=== PATIENT | female | born 1970 | race Caucasian/White ===

== ENCOUNTER → 2016-12-03 | Outpatient (CLI) | payer BC ==
[~2016-12-03] MED LIST: BCPILLS PO; CLX20 PO; IBUP-1050 PO
--- NOTE | 2016-12-03 16:40 | MAMMOGRAPHY REPORT ---
BILATERAL DIGITAL SCREENING MAMMOGRAM TOMOSYNTHESIS WITH CAD: 12/03/2016 CLINICAL HISTORY: Routine screening. Patient has no complaints. TECHNIQUE: Breast tomosynthesis in addition to standard 2D mammography was performed. Current study was also evaluated with a Computer Aided Detection (CAD) system. Bilateral CC and MLO 2-D and luke synthesis images were obtained. Tomosynthesis images were obtained of the implant displaced views. COMPARISON: Comparison is made to exams dated: 12/02/2015 mammogram, 09/12/2014 mammogram, 09/11/2013 mammogram, 09/28/2014 mammogram, 09/09/2012 mammogram, and 08/19/2011 mammogram - [facility]. BREAST COMPOSITION: The tissue of both breasts is heterogeneously dense, which may obscure small ma sses. FINDINGS: No suspicious masses, calcifications, or areas of architectural distortion are noted in e ither breast. There has been no significant interval change compared to prior exams. Bilateral sili cone implants are stable in appearance. A biopsy marker clip is again noted in the right lateral br east. IMPRESSION: ACR BI-RADS CATEGORY 2: BENIGN There is no mammographic evidence of malignancy. A 1 year screening mammogram is recommended. The p atient will receive written notification of the results. Approximately 10% of breast cancers are not detected with mammography. A negative mammographic repor t should not delay biopsy if a clinically suggestive mass is present. Nicole Guillermo M.D. /:12/03/2016 15:44:54 Chicken Hanger: Geni BELLA(Effie)(M), [facility] letter sent: Normal 1/2 BI-RADS Code: ACR BI-RADS Category 2: Benign
== END | disposition home or self-care (01) ==
LOC: C.MAMM 15:00
PROVIDERS: ATTEND Family Medicine
DX: Z12.31 Encounter for screening mammogram for malignant neoplasm of breast (principal)

== ENCOUNTER → 2017-06-11 | Outpatient (CLI) | payer BC ==
[2017-06-11 18:22] LABS: URINE APPEARANCE TURBID (CLEAR); URINE BILIRUBIN NEG (NEG); URINE COLOR DK YELLOW; URINE EPITHELIAL CELL AUTO >30 /lpf (0-5); URINE NITRITE NEG (NEG); URINE PH 5.5 (4.5-7.5); UROBILINOGEN NEG (NEG); ZZUR CULT IF INDIC CLEAN CATCH YES
[2017-06-11 18:23] LABS: MANUAL MICROSCOPIC REQUIRED? NO; REVIEW REQ? YES
== END | disposition home or self-care (01) ==
LOC: C.LABSPEC 17:31
PROVIDERS: ATTEND Obstetrics & Gynecology
DX: R30.0 Dysuria (principal)

== ENCOUNTER → 2017-06-11 | Outpatient (CLI) | payer BC | END | disposition home or self-care (01) | LOC: C.PAPS 16:25 | PROVIDERS: ATTEND Obstetrics & Gynecology | DX: Z01.419 Encounter for gynecological examination (general) (routine) without abnormal findings (principal) ==

== ENCOUNTER → 2017-07-20 | Outpatient (CLI) | payer BC | END | disposition home or self-care (01) | LOC: C.PATHSPEC 16:49 | PROVIDERS: ATTEND Nurse Practitioner Family | DX: R31.0 Gross hematuria (principal) ==

== ENCOUNTER → 2017-07-29 | Outpatient (CLI) | payer BC ==
[~2017-07-29] MED LIST changes: +OPTIRAY 320 IV PRN
--- NOTE | 2017-07-29 15:17 | DIAGNOSTIC IMAGING REPORT ---
CT OF THE ABDOMEN AND PELVIS WITH AND WITHOUT CONTRAST HEMATURIA PROTOCOL CLINICAL HISTORY: Gross hematuria. Right upper back pain. Abdominal pain. COMPARISON STUDY: CT of the abdomen and pelvis May 18, 2009 . TECHNIQUE: Unenhanced and split bolus phase imaging of the abdomen and pelvis was performed. Injection 119 cc Optiray 320 IV was uneventful. A dose lowering technique was utilized adhering to the principles of ALARA. CT DOSE: 1464.56 mGycm FINDINGS: No renal, ureteral or bladder calculi are present. There are no solid renal lesions. No upper tract filling defects are identified. Bladder is suboptimally assessed given underdistention but no bladder mass is identified. There is no perinephric infiltration. Visualized portions of lower chest partially visualize bilateral breast implants. The liver, spleen, adrenal glands and pancreas are normal. Caliber and wall thickness of small and large bowel are normal. A right lower quadrant subcutaneous anterior abdominal wall scar is noted. No suspicious osseous lesion is present. There is no lymphadenopathy or ascites. Major vasculature of the abdomen and pelvis is patent. There is no peripancreatic or pericholecystic infiltration. No biliary or pancreatic ductal dilatation is present. IMPRESSION: 1. No CT findings to explain hematuria. No urinary calculi or hydronephrosis. No upper tract urothelial lesions. Suboptimal evaluation of the bladder given underdistention but no bladder lesion identified. 2. No acute process within the abdomen or pelvis. Electronically signed by: Bennie Palacios M.D. 07/29/2017 3:16 PM Dictated Date/Time: 07/29/2017 3:07 PM
== END | disposition home or self-care (01) ==
LOC: C.CTS 14:41
PROVIDERS: ATTEND Nurse Practitioner Family
DX: R31.0 Gross hematuria (principal)

== ENCOUNTER → 2017-12-07 | Outpatient (CLI) | payer BC, OTHER ==
[~2017-12-07] MED LIST changes: -OPTIRAY 320 IV PRN
--- NOTE | 2017-12-08 15:29 | MAMMOGRAPHY REPORT ---
BILATERAL DIGITAL SCREENING MAMMOGRAM WITH CAD: 12/07/2017 CLINICAL HISTORY: Routine screening. Patient has no complaints. TECHNIQUE: Bilateral CC and MLO views of the breasts with and without implant displacement views were obtained. Current study was also evaluated with a Computer Aided Detection (CAD) system. COMPARISON: Comparison is made to exams dated: 12/03/2016 mammogram, 12/02/2015 mammogram, 10/03/2014 ult rasound biopsy, 10/03/2014 mammogram, 09/28/2014 ultrasound, and 09/28/2014 mammogram - [facility]. BREAST COMPOSITION: The tissue of both breasts is heterogeneously dense, which may obscure small mas ses. FINDINGS: Bilateral subpectoral silicone implants are stable comparing to prior exams. There is a s table biopsy marker clip in the right upper outer quadrant. There is a small cluster of microcalcifications in the superior posterior right breast, seen on both the implant displaced and non-implant displaced MLO views, for which additional spot magnification vi ews are recommended. As these calcifications may project laterally, an additional spot magnification view in the exaggerated lateral CC projection should be obtained. No other suspicious mass, architectural distortion or cluster of microcalcifications is seen. IMPRESSION: ACR BI-RADS CATEGORY 0: INCOMPLETE EVALUATION: NEED ADDITIONAL IMAGING EVALUATION The small cluster of microcalcifications in the superior, posterior right breast need additional eval uation. The patient will be called to schedule an appointment. Approximately 10% of breast cancers are not detected with mammography. A negative mammographic report should not delay biopsy if a clinically suggestive mass is present. Indy Rodriguez M.D. ay/:12/07/2017 15:35:51 Tannery Worker: Lea BELLA(Effie)(Itzel), [facility] letter sent: Addl Imaging 0 BI-RADS Code: ACR BI-RADS Category 0: Incomplete Evaluation: Need Additional Imaging Evaluation
== END | disposition home or self-care (01) ==
LOC: C.MAMM 15:07
PROVIDERS: ATTEND Family Medicine
DX: Z12.31 Encounter for screening mammogram for malignant neoplasm of breast (principal); R92.0 Mammographic microcalcification found on diagnostic imaging of breast

== ENCOUNTER → 2017-12-15 | Outpatient (CLI) | payer OTHER ==
--- NOTE | 2017-12-16 15:54 | MAMMOGRAPHY REPORT ---
UNILATERAL RIGHT DIGITAL DIAGNOSTIC MAMMOGRAM: 12/15/2017 CLINICAL HISTORY: Callback from screening mammogram for right breast calcifications. TECHNIQUE: Spot magnification right ML and XCCL implant displaced views were obtained. COMPARISON: Comparison is made to exams dated: 12/07/2017 mammogram, 12/03/2016 mammogram, 12/02/2015 mamm ogram, 09/28/2014 ultrasound, 09/28/2014 mammogram, and 09/12/2014 mammogram - [facility]. BREAST COMPOSITION: The tissue of the right breast is heterogeneously dense, which may obscure small masses. FINDINGS: Spot magnification views of the right breast demonstrate a small 2 mm cluster of faint pun ctate calcifications in the right superior posterior breast, seen on one view only. In retrospect, t he calcifications are likely not significantly changed compared to the 09/12/2014 exam. Given the pr obable long-term stability, the calcifications are probably benign. IMPRESSION: ACR-BI-RADS CATEGORY 3: PROBABLY BENIGN Small 2 mm cluster of punctate calcifications in the right superior posterior breast are likely stabl e compared to the August 2014 exam and are probably benign. Recommend follow-up diagnostic tomosynt hesis mammograms of the right breast in 6 months to confirm stability. The patient has been verbally notified of the results. Approximately 10% of breast cancers are not detected with mammography. A negative mammographic report should not delay biopsy if a clinically suggestive mass is present. Nicole Guillermo M.D. /:12/15/2017 15:12:42 Gate Supervisor: Geni MACK)(Itzel), [facility] letter sent: Follow Up Recommended 3 BI-RADS Code: ACR-BI-RADS Category 3: Probably Benign
== END | disposition home or self-care (01) ==
LOC: C.MAMM 14:36
PROVIDERS: ATTEND Family Medicine
DX: R92.0 Mammographic microcalcification found on diagnostic imaging of breast (principal)

== ENCOUNTER 2017-12-20 20:27 | Emergency (ER) | payer OTHER ==
[~2017-12-20] VITALS: Ht 160 cm; Wt 81.6 kg
[2017-12-20 20:36] VITALS: TEMP 36.8; Ht 160 cm; Wt 81.6 kg
[2017-12-20] MEDS ORDERED: KETOROLAC TROMETHAMINE 30 MG/ML VIAL IV STA (21:46)
[2017-12-20] MEDS ORDERED: ONDANSETRON INJ 2 MG/ML 2 ML VIAL IV STA (21:46)
[2017-12-20 22:19] LABS: BASO % 0.3 %; BASO ABS # 0.03 K/uL (0-0.2); EOS % 1.5 %; EOS ABS # 0.18 K/uL (0-0.5); HEMATOCRIT 42.2 % (37-47); HEMOGLOBIN 14.2 g/dL (12.0-16.0); IG# 0.02 K/uL (0.00-0.02); LYMPH % 24.1 %; MEAN CORPUSCULAR HEMOGLOBIN 31.6 pg (25-34); MEAN CORPUSCULAR HGB CONC 33.6 g/dl (32-36); MEAN PLATELET VOLUME 9.3 fL (7.4-10.4); MONO % 5.3 %; MONO ABS # 0.62 K/uL (0.11-0.59); NEUT % 68.6 %; NEUT ABS # 7.99 K/uL (1.4-6.5); PLATELET COUNT 301 K/uL (130-400); RED CELL DISTRIBUTION WIDTH CV 13.4 % (11.5-14.5); RED CELL DISTRIBUTION WIDTH SD 46.2 fL (36.4-46.3); WHITE BLOOD COUNT 11.64 K/uL (4.8-10.8)
[2017-12-20 22:36] LABS: ALBUMIN 3.5 gm/dl (3.4-5.0); ALT/SGPT 17 U/L (12-78); BLOOD UREA NITROGEN 12 mg/dl (7-18); CALCIUM 8.8 mg/dl (8.5-10.1); CARBON DIOXIDE 27 mmol/L (21-32); CREATININE 0.72 mg/dl (0.60-1.20); GLUCOSE 69 mg/dl (70-99); LIPASE 123 U/L (73-393); POTASSIUM 3.3 mmol/L (3.5-5.1); SODIUM 137 mmol/L (136-145)
[2017-12-20 22:39] LABS: ALKALINE PHOSPHATASE 146 U/L (45-117); AST/SGOT 12 U/L (15-37); TOTAL PROTEIN 7.4 gm/dl (6.4-8.2)
[2017-12-20] MEDS ORDERED: POTASSIUM CHLORIDE 10 MEQ TABCR PO STA (22:42)
[2017-12-20] MEDS ORDERED: OPTIRAY 320 IV PRN (23:15)
[2017-12-20 23:40] VITALS: O2SAT 98
[2017-12-20] MEDS ORDERED: MoRPHine SULFATE 4 MG/ML 1 ML CARP\\VIAL IV STA (23:47)
[2017-12-21] MEDS ORDERED: DESO5TAB PO (01:44)
[2017-12-21] MEDS ORDERED: PRLSR20 PO (01:44)
[2017-12-21] MEDS ORDERED: EFF75 PO (01:44)
[2017-12-21] MEDS ORDERED: IODI1TAB PO (01:45)
[2017-12-21] MEDS ORDERED: APPL188C PO (01:45)
[2017-12-21] MEDS ORDERED: TURM1CAP4 PO (01:45)
[2017-12-21] MEDS ORDERED: OXYCODONE IR HOME PACK PO ONE (02:00)
[2017-12-21 02:06] VITALS: BP 143/82; PULSE 73; O2SAT 97
--- NOTE | 2017-12-21 02:18 | EMERGENCY ROOM VISIT NOTE ---
History First contact with patient: 21:39 Chief Complaint: ABDOMINAL PAIN Stated Complaint: SEVERE PAIN IN LOWER RIGHT ABD/BELLY BOTTON History of Present Illness The patient is a 47 year old female who presents to the Emergency Room with complaints of right lower abdominal pain over her scar for the past several days steadily getting worse it is been intermittent for quite some time. Patient states her scar area has become more painful and swollen. Pain is described as aching, ranging in severity 7 out of 10 worse with palpation and better with rest. Patient denies chest pain, dyspnea, fever, chills, night sweats, weight loss, urinary symptoms, back pain. Patient has a history of hematuria and is currently being worked up by urology for this. Review of Systems See HPI for pertinent positives & negatives. A total of 10 systems reviewed and were otherwise negative. Past Medical/Surgical History ovarian cysts, endometriosis, polycystic ovarian disease, Social History Smoking Status: Former Smoker Drug Use: none Marital Status: Housing Status: lives with family Occupation Status: employed Current/Historical Medications Scheduled Apple Cider Vinegar (Apple Cider Vinegar), 1 CAP PO DAILY Desogestrel-Ethinyl Estradiol (Pimtrea 0.15-0.02/0.01 mg (18/04)), 1 TAB PO DAILY Iodine (Kelp) (Kelp), 150 MG PO DAILY Omeprazole (Prilosec), 20 MG PO DAILY Turmeric (Curcuma Longa) (Turmeric), 500 MG PO DAILY Venlafaxine Hcl (Effexor), 3 TABS PO DAILY Physical Exam Vital Signs Date Time Temp Pulse Resp B/P (MAP) Pulse Ox O2 Delivery O2 Flow Rate FiO2 12/21/17 02:06 73 14 143/82 97 12/21/17 00:26 68 14 158/84 93 Room Air 12/20/17 23:40 98 Room Air 12/20/17 23:39 75 16 153/83 97 Room Air 12/20/17 22:25 73 18 164/97 97 Room Air 12/20/17 20:36 36.8 70 16 170/99 97 Room Air Physical Exam VITALS: Vitals are noted on the nurse's note and reviewed by myself. Vital signs hypertensive GENERAL: Pleasant female, in no acute distress, nondiaphoretic, well-developed well-nourished. SKIN: The skin was without rashes, erythema, edema, or bruising. There is no tenting of the skin. Capillary reflex less than 2 seconds. HEAD: Normocephalic atraumatic. EARS: External auditory canals clear, tympanic membranes pearly recinos without erythema or effusion bilaterally. EYES: Pupils equal round and reactive to light and accommodation. Conjunctivae without injection, sclerae without icterus. Extraocular movements intact. NOSE: Patent, turbinates without inflammation or discharge. MOUTH: Mucous membranes moist. Pharynx without erythema or exudate. Uvula midline. Airway patent. Tongue does not deviate. NECK: Supple without nuchal rigidity. No lymphadenopathy. No thyromegaly. Cervical spine is nontender. No JVD. HEART: Regular rate and rhythm without murmurs gallops or rubs. LUNGS: Clear to auscultation bilaterally without wheezes, rales or rhonchi. No dullness to percussion. No retractions or accessory muscle use. ABDOMEN: Positive bowel sounds x 4. Normal tympanic percussion. Soft, nontender, scar over the right lateral aspect tender to palpation with palpable mass without organomegaly. Couch sign negative. No guarding or rebound tenderness. No CVA tenderness MUSCULOSKELETAL: No muscle atrophy, erythema, or edema noted. NEURO: Patient was alert and oriented to person place and time. Normal sensation to light and sharp touch. No focal neurological deficits. Medical Decision & Procedures Laboratory Results 12/20/17 22:10 Red Blood Count 4.49, Mean Corpuscular Volume 94.0, Mean Corpuscular Hemoglobin 31.6, Mean Corpuscular Hemoglobin Concent 33.6, Mean Platelet Volume 9.3, Neutrophils (%) (Auto) 68.6, Lymphocytes (%) (Auto) 24.1, Monocytes (%) (Auto) 5.3, Eosinophils (%) (Auto) 1.5, Basophils (%) (Auto) 0.3, Neutrophils # (Auto) 7.99, Lymphocytes # (Auto) 2.80, Monocytes # (Auto) 0.62, Eosinophils # (Auto) 0.18, Basophils # (Auto) 0.03 12/20/17 22:10 Test 12/20/17 22:00 12/20/17 22:10 12/21/17 00:31 Urine Color YELLOW Urine Appearance CLEAR (CLEAR) Urine pH 6.0 (4.5-7.5) Urine Specific Hughson 1.009 (1.000-1.030) Urine Protein NEG (NEG) Urine Glucose (UA) NEG (NEG) Urine Ketones NEG (NEG) Urine Occult Blood TRACE (NEG) Urine Nitrite NEG (NEG) Urine Bilirubin NEG (NEG) Urine Urobilinogen NEG (NEG) Urine Leukocyte Esterase NEG (NEG) Urine WBC (Auto) 1-5 /hpf (0-5) Urine RBC (Auto) 0-4 /hpf (0-4) Urine Hyaline Casts (Auto) 0 /lpf (0-5) Urine Epithelial Cells (Auto) 20-30 /lpf (0-5) Urine Bacteria (Auto) 1+ (NEG) White Blood Count 11.64 K/uL (4.8-10.8) Red Blood Count 4.49 M/uL (4.2-5.4) Hemoglobin 14.2 g/dL (12.0-16.0) Hematocrit 42.2 % (37-47) Mean Corpuscular Volume 94.0 fL (80-100) Mean Corpuscular Hemoglobin 31.6 pg (25-34) Mean Corpuscular Hemoglobin Concent 33.6 g/dl (32-36) Platelet Count 301 K/uL (130-400) Mean Platelet Volume 9.3 fL (7.4-10.4) Neutrophils (%) (Auto) 68.6 % Lymphocytes (%) (Auto) 24.1 % Monocytes (%) (Auto) 5.3 % Eosinophils (%) (Auto) 1.5 % Basophils (%) (Auto) 0.3 % Neutrophils # (Auto) 7.99 K/uL (1.4-6.5) Lymphocytes # (Auto) 2.80 K/uL (1.2-3.4) Monocytes # (Auto) 0.62 K/uL (0.11-0.59) Eosinophils # (Auto) 0.18 K/uL (0-0.5) Basophils # (Auto) 0.03 K/uL (0-0.2) RDW Standard Deviation 46.2 fL (36.4-46.3) RDW Coefficient of Variation 13.4 % (11.5-14.5) Immature Granulocyte % (Auto) 0.2 % Immature Granulocyte # (Auto) 0.02 K/uL (0.00-0.02) Anion Gap 6.0 mmol/L (3-11) Est Creatinine Clear Calc Drug Dose 96.6 ml/min Estimated GFR () 114.8 Estimated GFR (Non- 99.0 BUN/Creatinine Ratio 16.6 (10-20) Calcium Level 8.8 mg/dl (8.5-10.1) Magnesium Level 2.0 mg/dl (1.8-2.4) Total Bilirubin 0.2 mg/dl (0.2-1) Direct Bilirubin < 0.1 mg/dl (0-0.2) Aspartate Amino Transf (AST/SGOT) 12 U/L (15-37) Alanine Aminotransferase (ALT/SGPT) 17 U/L (12-78) Alkaline Phosphatase 146 U/L (45-117) Lactate Dehydrogenase 150 U/L (84-246) Total Protein 7.4 gm/dl (6.4-8.2) Albumin 3.5 gm/dl (3.4-5.0) Lipase 123 U/L (73-393) Human Chorionic Gonadotropin, Qual NEG (NEG) Bedside Glucose 81 mg/dl (70-90) Medications Administered Medications (Trade) Dose Ordered Sig/Hai Route Start Time Stop Time Status Last Admin Dose Admin Ketorolac Tromethamine (Toradol Inj) 30 mg NOW STAT IV 12/20/17 21:46 12/20/17 21:55 DC 12/20/17 22:24 30 MG Ondansetron HCl (Zofran Inj) 4 mg NOW STAT IV 12/20/17 21:46 12/20/17 21:55 DC 12/20/17 22:24 4 MG Potassium Chloride (Klor-Con M10) 20 meq NOW STAT PO 12/20/17 22:42 12/20/17 22:43 DC 12/20/17 23:51 20 MEQ Morphine Sulfate (MoRPHine SULFATE INJ) 4 mg NOW STAT IV 12/20/17 23:47 12/20/17 23:48 DC 12/20/17 23:52 4 MG Oxycodone HCl (Roxicodone Immediate Rel 5MG Home Pack) 1 homepack UD ONCE PO 12/21/17 02:00 12/21/17 02:01 DC 12/21/17 01:56 1 HOMEPACK ED Course Prior records/ancillary studies reviewed. Triage Nursing notes reviewed. Additional history obtained from family. The patient's history was concerning for abdominal pain. Differential diagnosis: Etiologies such as prominent scar, cancer, cyst, torsion, appendicitis, diverticulitis, PUD, biliary pathology, UTI, pancreatitis, obstruction, mesenteric ischemia, aortic pathology, infections, inflammatory bowel disease, renal colic, as well as others were entertained. Physical examination findings: As above. ER treatment provided: Morphine, Toradol, IV fluids On reassessment the patient felt better. Diagnostics interpreted by me: The labs revealed hypokalemia, hypoglycemia and patient was fed. Mildly elevated alkaline phosphatase. Normal LDH. Repeat glucose is improved. Imaging studies: Pelvic ultrasound was reviewed and concerning for ovarian cyst Abdominal ultrasound limited was reviewed concerning forUS SOFT TISSUE: In the region of the section scar within the subcutaneous soft tissues there is an irregular shaped heterogeneous hypoechoic masslike lesion measuring 3.3 x 2 x 2 cm. This demonstrates minimal vascular flow. This may represent prominent scar tissue with other etiologies not excluded. Consider further evaluation with contrast-enhanced MRI if clinically indicated. Radiologist: Manuel Garvin MD CT ABDOMEN & PELVIS With Contrast: Bilateral breast augmentation. Liver, gallbladder, spleen, pancreas and adrenal glands are unremarkable. Kidneys, ureters and urinary bladder are unremarkable. Left ovarian cyst measuring up to 2.6 cm and the right ovarian cyst measuring up to 2.9 cm. Appendix is unremarkable. Bowel is unremarkable. Stable prominent soft tissue overlying the lower right rectus abdominis muscle, likely scar tissue. No acute osseous abnormality. Radiologist: Manuel Garvin MD Exam and history seem consistent with prominent scar that is tender. Patient was advised to follow-up family care for possible surgical referral. Patient did not have acute abdomen on exam. She is tolerating fluids. She is well- appearing. She has a history of ovarian cyst and this is unchanged. She is advised to follow-up with OB for this. She has a history of hematuria and she is advised to continue follow-up care with urology for this. She is advised to return to the ER immediately for severe pain, fevers, vomiting, worsening signs or symptoms or as needed.By the evaluation outlined above emergent etiologies such as appendicitis, diverticulitis, PUD, biliary pathology, UTI, pancreatitis , obstruction, mesenteric ischemia, aortic pathology, infections, inflammatory bowel disease, renal colic, as well as others were deemed relatively unlikely. The pt informed about the findings as listed above. All questions were answered and pleased with the treatment. Return instructions were outlined and the patient was discharged in stable condition. Case reviewed with my attending Referral: The patient was referred back to their primary care physician for follow-up in 2 to 3 days for a recheck of the current condition. Medical Decision As above Medication Reconcilliation Current Medication List: was personally reviewed by me Blood Pressure Screening Patient's blood pressure: Elevated blood pressure Blood pressure disposition: Elevated BP felt to be situational Impression Primary Impression: Scar of abdominal wall Additional Impression: ovarian cyst Departure Information Dispostion Home / Self-Care Condition GOOD Forms Call Back Authorization, HOME CARE DOCUMENTATION FORM, Work Instructions, Return To Work: 2 days IMPORTANT VISIT INFORMATION Patient Instructions My [facility] Additional Instructions DO NOT drive, drink alcohol, operate machinery, or perform dangerous activities today. You were given medications in the ER that can affect your ability to safely function or operate a vehicle. Ibuprofen(Motrin, Advil) may be used for fever or pain. Use 600mg every six hours as needed. Take with food. Avoid using more than 2400mg in a 24 hour period. Do not use 2400mg per day for more than three consecutive days without physician direction. Prolonged inappropriate use can lead to stomach upset or ulcers. (AND/OR) Acetaminophen(Tylenol) may be used for fever or pain. Use 1000mg every six hours as needed. Avoid using more than 3000mg in a 24 hour period. Rest and drink plenty of fluids as tolerated. Continue current medications. Avoid strenuous activities and anything that worsens your pain. Resume normal activities once your symptoms resolve. Return to the ER immediately for worsening or persistent abdominal pain, vomiting, fevers, chest pains, difficulty breathing, worsening of your condition , or as needed. Follow up with your primary physician in 2-3 days for a recheck of your current condition. Work Instructions Return To Work: 2 days Problem Qualifiers
--- NOTE | 2017-12-21 06:59 | DIAGNOSTIC IMAGING REPORT ---
ABDOMEN LIMITED (US) HISTORY: 47 years-old Female RLQ mass along couple mass of the right lower quadrant within the region of prior scar. COMPARISON: CT abdomen and pelvis of same day TECHNIQUE: Multiple real-time sonographic images of the right lower quadrant soft tissues were obtained assessing grayscale appearance and color flow. FINDINGS: Within the area of concern within the subcutaneous tissues of the abdominal right lower quadrant there is an irregular heterogeneous taller than wide hypoechoic lesion measuring 3.3 x 2.0 x 2.0 cm demonstrating areas of internal vascularity. This lesion appears to extend into the rectus abdominal musculature on the right. IMPRESSION: Irregular hypoechoic lesion measuring up to 3.3 cm within the subcutaneous tissues of the abdominal right lower quadrant appears to extend into the right rectus sheath musculature. With history of prior section, differential considerations would include endometrioma or desmoid tumor with normal scar tissue related to prior surgery thought to be less likely. The above report was generated using voice recognition software. It may contain grammatical, syntax or spelling errors. Electronically signed by: Tom Cruz M.D. 12/21/2017 6:57 AM Dictated Date/Time: 12/21/2017 6:52 AM
--- NOTE | 2017-12-21 07:42 | DIAGNOSTIC IMAGING REPORT ---
CT SCAN OF THE ABDOMEN AND PELVIS WITH IV CONTRAST CLINICAL HISTORY: Right lower quadrant abdominal pain. COMPARISON STUDY: Abdominal CT dated 07/29/2017. TECHNIQUE: Following the IV administration of 93 cc of Optiray 320, CT scan of the abdomen and pelvis is performed from the lung bases to the proximal femora. Images are reviewed in the axial, sagittal, and coronal planes. IV contrast was administered without complication. A dose lowering technique was utilized adhering to the principles of ALARA. CT DOSE: 384.93 mGy.cm FINDINGS: Lung bases: The heart is normal in size and without pericardial effusion. Air trapping is present at both lung bases. No airspace consolidation or pleural effusion is identified. Bilateral breast implants are noted. Liver: The contrast-enhanced liver is normal in size, contour, and attenuation. There is no intrahepatic biliary ductal dilatation. The hepatic veins and portal veins are patent. Gallbladder: Unremarkable. Spleen: Normal in size and attenuation. Pancreas: Unremarkable. Adrenal glands: Unremarkable. Kidneys: The contrast enhanced kidneys are normal in size and without hydronephrosis. The kidneys enhance symmetrically. Abdominal vasculature: The abdominal aorta is normal in course and caliber noting mild atherosclerotic calcification. Bowel: The small bowel and colon are normal in course and caliber. The appendix is well-visualized and normal. Peritoneum: There is no intraperitoneal free air or abdominal ascites. There is a small fat-containing umbilical hernia. There is abnormality identified involving the right rectus abdominis muscle and the ventral pelvis seen on axial image #322. Irregular and slightly hyperdense soft tissue extends into the subcutaneous fat, and this measures 6.0 x 1.7 x 3.6 cm. Lymphadenopathy: None. Pelvic viscera: The bladder is decompressed and grossly unremarkable. The uterus is normal as visualized. Bilateral ovarian follicles are noted. Skeletal structures: No lytic or blastic lesions are seen. IMPRESSION: 1. There are no acute infectious or inflammatory findings in the abdomen or pelvis. 2. Again seen is prominence of hyperdense soft tissue present within the right rectus abdominis muscle and extending the subcutaneous fat. This was also seen on 07/29/2017. This may be related to a previous surgical site, and could represent hypertrophic scar, an endometrioma within the abdominal wall, or less likely a desmoid. Clinical correlation will be essential. Electronically signed by: Ash Britt M.D. 12/21/2017 7:40 AM Dictated Date/Time: 12/21/2017 7:28 AM
--- NOTE | 2017-12-21 07:55 | DIAGNOSTIC IMAGING REPORT ---
PELVIC ULTRASOUND, TRANSABDOMINAL AND TRANSVAGINAL HISTORY: RLQ mass along COMPARISON: Abdominal ultrasound 12/20/2017. FINDINGS: Uterus: 8.2 x 3.6 x 3.8 cm. A 2.4 x 2.2 x 1.2 cm hypoechoic area within the uterine fundus with posterior shadowing. This may represent a fibroid. Endometrial stripe: Asymmetric thickening of the endometrium within the right side the fundus measuring up to 1.1 cm. There are multiple echogenic foci surrounding the endometrium within the fundus. Right ovary: Normal in size and demonstrates normal color flow. A 2.5 cm cyst. Left ovary: Normal in size and demonstrates normal color flow. A 2.7 cm cyst. Miscellaneous:No pelvic free fluid. IMPRESSION: 1. Bilateral ovarian simple cysts. 2. There is asymmetric thickening of the endometrium within the right side of the fundus measuring up to 1.1 cm in thickness. If this patient is postmenopausal then gynecologic consultation is recommended. 3. Probable 2.4 cm fundal fibroid. 4. The patient's anterior abdominal wall abnormality was not visualized on this study. Electronically signed by: Paul Temple M.D. 12/21/2017 7:53 AM Dictated Date/Time: 12/21/2017 7:47 AM
== END 2017-12-21 02:00 | disposition home or self-care (01) ==
LOC: C.EDB 20:28
DX: L90.5 Scar conditions and fibrosis of skin (principal); E28.2 Polycystic ovarian syndrome; E87.6 Hypokalemia; E16.2 Hypoglycemia, unspecified; Z87.891 Personal history of nicotine dependence

== ENCOUNTER → 2018-01-07 | Outpatient (CLI) | payer OTHER ==
[~2018-01-07] MED LIST changes: +APPL188C PO; -BCPILLS PO; -CLX20 PO; +DESO5TAB PO; +EFF75 PO; -IBUP-1050 PO; +IODI1TAB PO; +PRLSR20 PO; +TURM1CAP4 PO
[2018-01-07 15:18] LABS: HEMOGLOBIN 12.8 g/dL (12.0-16.0); MEAN CELL VOLUME 93.8 fL (80-100); MEAN CORPUSCULAR HEMOGLOBIN 31.6 pg (25-34); MEAN CORPUSCULAR HGB CONC 33.7 g/dl (32-36); MEAN PLATELET VOLUME 9.5 fL (7.4-10.4); PLATELET COUNT 297 K/uL (130-400); RED CELL DISTRIBUTION WIDTH CV 13.4 % (11.5-14.5); RED CELL DISTRIBUTION WIDTH SD 46.3 fL (36.4-46.3); WHITE BLOOD COUNT 6.86 K/uL (4.8-10.8)
== END | disposition home or self-care (01) ==
LOC: C.LAB1850 14:53
PROVIDERS: ATTEND Obstetrics & Gynecology
DX: N92.0 Excessive and frequent menstruation with regular cycle (principal)

== ENCOUNTER → 2018-01-07 | Outpatient (CLI) | payer OTHER | END | disposition home or self-care (01) | LOC: C.PATHSPEC 17:29 | PROVIDERS: ATTEND Obstetrics & Gynecology | DX: N92.0 Excessive and frequent menstruation with regular cycle (principal) ==

== ENCOUNTER 2018-02-18 09:04 | Observation (INO) | payer OTHER ==
[2018-02-10 14:23] VITALS: BMI 31.0
--- NOTE | 2018-02-10 14:50 | PAT Medication Instructions ---
"Service Date Feb 10, 2018. Current Home Medication List Acetaminophen (Tylenol), 1,000 MG PO PRN Apple Cider Vinegar (Apple Cider Vinegar), 2 CAP PO QAM Desogestrel-Ethinyl Estradiol (Pimtrea 0.15-0.02/0.01 mg (18/04)), 1 TAB PO QAM Ibuprofen Tab (Advil), 800 MG PO PRN Iodine (Kelp) (Kelp), 150 MG PO QAM Nystatin/Triamcinolone (Mycogen || ), 1 DOSE TOP BID Omeprazole (Prilosec), 20 MG PO QAM Turmeric (Curcuma Longa) (Turmeric), 500 MG PO QAM Venlafaxine Hcl (Venlafaxine Hcl Er), 1 TAB PO QAM [Triamcinolone Cr], 1 DOSE TP PRN Medication Instructions For Your Scheduled Surgery - Per patient, already on hold as of 11/2017: Apple Cider Vinegar (Apple Cider Vinegar), 2 CAP PO QAM Iodine (Kelp) (Kelp), 150 MG PO QAM Turmeric (Curcuma Longa) (Turmeric), 500 MG PO QAM - Hold the following medications 7-10 days prior to surgery: Desogestrel-Ethinyl Estradiol (Pimtrea 0.15-0.02/0.01 mg (18/04)), 1 TAB PO QAM Ibuprofen Tab (Advil), 800 MG PO PRN - Hold the following medications the morning of surgery: [Triamcinolone Cr], 1 DOSE TP PRN Nystatin/Triamcinolone (Mycogen || ), 1 DOSE TOP BID - Take the following medications the morning of surgery with a sip of water: Acetaminophen (Tylenol), 1,000 MG PO PRN (okay to take up to 4 hours prior to surgery if needed) Venlafaxine Hcl (Venlafaxine Hcl Er), 1 TAB PO QAM Omeprazole (Prilosec), 20 MG PO QAM - Take the following medications as scheduled the night before surgery: Acetaminophen (Tylenol), 1,000 MG PO PRN (if needed) If you have any questions please call us at [phone] or [phone] or [phone]"
[2018-02-18] VITALS (8 sets, daily range): BP systolic 119–142; BP diastolic 67–80; PULSE 63–97; TEMP 36.6–37.2; O2SAT 96–98; Ht 160 cm; Wt 81.5 kg
[~2018-02-18] VITALS: Ht 160 cm; Wt 81.5 kg
[~2018-02-18 09:04] MED LIST changes: +ACET-1256 PO; +CEFAZOLIN 2000MG IV PUSH 15 ML IV SCH; -EFF75 PO; +IBUP-103 PO; +LACTATED RINGER'S 1000ML 1,000 ML IV SCH; +NYSTCRE11 TOP; +TRIAMCINOLONE TP; +VENL150T33 PO
--- NOTE | 2018-02-18 11:25 | History & Physical Bridge Note ---
H&P Re-Evaluation Bridge Note: I have examined the patient, reviewed the History & Physical and in the interval since the performance of the History & Physical I have noted the following changes of clinical significance: No changes noted
[2018-02-18] MEDS ORDERED: NEOSTIGMINE METHYLSULFATE 5 MG/5 ML SYR ONE (11:41)
[2018-02-18] MEDS ORDERED: GLYCOPYRROLATE INJ 0.2 MG/ML VIAL ONE ×2 (11:41→11:43)
[2018-02-18] MEDS ORDERED: FENTANYL CITRATE INJ 50 MCG/1 ML 2 ML VIAL ONE (11:41)
[2018-02-18] MEDS ORDERED: ONDANSETRON INJ 2 MG/ML 2 ML VIAL ONE ×2 (11:41→11:43)
[2018-02-18] MEDS ORDERED: MIDAZOLAM HCL 1 MG/ML 2ML VIAL ONE (11:41)
[2018-02-18] MEDS ORDERED: DEXAMETHASONE SOD INJ 4 MG/ML VIAL ONE (11:41)
[2018-02-18] MEDS ORDERED: PROPOFOL IV EMULSION 10 MG/ML 20 ML VIAL IV ONE (11:41)
[2018-02-18] MEDS ORDERED: LIDOCAINE HCL 2% 2 ML VIAL (20MG/ML) ONE (11:41)
[2018-02-18] MEDS ORDERED: LARYING-O-JET KIT (LTA) ONE (11:43)
[2018-02-18] MEDS ORDERED: METHYLENE BLUE 0.5% 10 ML VIAL IV ONE (13:18)
[2018-02-18] MEDS ORDERED: ROCURONIUM BROMIDE 10 MG/ML 5 ML VIAL IV ONE (13:20)
[2018-02-18] MEDS ORDERED: KETOROLAC TROMETHAMINE 30 MG/ML VIAL ONE (13:20)
[2018-02-18] MEDS ORDERED: EpHEDrine SULFATE INJ 50 MG/ML AMP IV PRN (13:30)
[2018-02-18] MEDS ORDERED: ATROPINE SULFATE 0.1 MG/ML 5ML SYR IV PRN (13:30)
[2018-02-18] MEDS ORDERED: ONDANSETRON INJ 2 MG/ML 2 ML VIAL IV PRN ×2 (13:30→13:45)
[2018-02-18] MEDS ORDERED: FENTANYL CITRATE INJ 50 MCG/1 ML 2 ML VIAL IV PRN (13:30)
[2018-02-18] MEDS ORDERED: HYDROmorphone INJ 1 MG/ML SYR IV PRN (13:30)
[2018-02-18] MEDS ORDERED: LACTATED RINGER'S 1000ML 1,000 ML IV SCH (13:41)
--- NOTE | 2018-02-18 13:44 | Discharge Instructions ---
Discharge Instructions Date of Service Feb 18, 2018. Visit Reason for Visit: Endometriosis In Scar, Menorrhagia Discharge Discharge Diagnosis / Problem: Endometriosis Discharge Goals Goal(s): Specific goals Activity Recommendations Activity Limitations: per Instructions/Follow-up section Anesthesia . Post Anesthesia Instructions: If you have had General Anesthesia or IV Sedation: * Do not drive today. * Resume driving when surgeon permits. * Do not make important decisions or sign legal documents today. * Call surgeon for: 1. Temperature elevations greater than 101 degrees F. 2. Uncontrollable pain. 3. Excessive bleeding. 4. Persistent nausea and vomiting. 5. Medication intolerance (nausea, vomiting or rash). * For nausea and vomiting use only clear liquids such as: tea, soda, bouillon until nausea subsides, then gradually increase diet as tolerated. * If you have any concerns or questions, call your surgeon's office. If physician is unavailable and it is an emergency, call 911 or go to the nearest emergency room. . Instructions / Follow-Up Instructions / Follow-Up POST OPERATIVE: BOWEL FUNCTION/MEDICATIONS: 1. Constipation pain and discomfort are the most common complaints 5-7 days after surgery. Points 2-6 address the things that can help. 2. Chewing gum can help stimulate the gut and help improve digestion and motility. 3. Milk of Magnesia 1-2 times per day until return of bowel function. 4. Colace is a stool softener that helps. Taking this 2-3 times per day until bowel function returns to normal is highly recommended. 5. Dulcolax is a laxative that may be used if several days have passed without a bowel movement. Alternatively Miralax may be used daily instead. 6. Drink plenty of fluids as this will also reduce constipation. 7. Narcotic pain medications will be prescribed by your physician. They are safe to use and we encourage you to use them. If you are not allergic, ibuprofen will also be prescribed. Many patients will be able to transition off of the narcotic medications to ibuprofen by postoperative day 3. ACTIVITY RECOMMENDATIONS: 1. Get plenty of rest and listen to your body. If you are tired, take a nap. 2. You may shower, but do not take a tub bath until you see your doctor at the 2 week post operative visit. 3. Absolutely NO intercourse and nothing in the vagina until you are examined by your doctor at the 6 week visit. At that visit it will be determined when such activities can be resumed. This can range from 6-12 weeks after your surgery depending on healing time. 4. The main physical activity in the first week should be walking. By the second week you can slowly increase activity. There are no limits on walking up and down stairs. 5. Do not lift more than 5-10 lbs for 4 weeks. Remember the "one-handed rule", i.e. if you can lift something with only one hand it's likely okay. 6. Minimize veterinary technician assistant like vacuuming and exercising for 4 weeks. "Overdoing it" can lead to incisions not healing, pain and vaginal bleeding , so again, listen to your body. 7. Driving can be resumed when you feel able. Do not drive within 24 hours of taking a narcotic medication. EXPECTATIONS: 1. Vaginal spotting, bleeding and discharge are common after surgery. There may even be an odor to the discharge which is often related to sutures used in the vagina. If you experience heavy vaginal bleeding, call the office number day or night [phone]. 2. Bladder discomfort is common after surgery from the catheter. This usually resolves in 1-2 weeks. 3. By the end of the 3rd or 4th week you should be feeling much better. It may take up to 6 weeks for your energy levels to return to normal. 4. Narcotic medications have side effects such as: dizziness, headache, nausea and/or vomiting. If you suspect your pain medication is causing problems, call our office and we may be able to prescribe an alternate medication. 5. The skin incisions are often covered with a liquid bandage. This will gradually peel off over time. CALL THE OFFICE IF YOU HAVE ANY OF THE FOLLOWIN. Temperature of 101 degrees or higher. 2. Severe abdominal or pelvic pain not relieved by pain medication. 3. Persistent nausea or vomiting. 4. Increased pain with urination or difficulty urinating. 5. Bright red bleeding that soaks more than 1 pad per hour. CONTACT PHONE NUMBERS: Main Office: [phone] Surgical Nurse: [phone] extension [phone] FOLLOW-UP: Post-Operative Appointments: * Individual instructions will have been given about the timing of your first examination, but this is usually at the end of the second week home. * You will need to call the office at soon after discharge to make the appointment for your post-op check-up if it has not already been scheduled. * Additional information regarding activity, sexual intercourse and when to return to work will be given at this appointment. WE WISH YOU A SPEEDY RECOVERY! Diet Recommendations Recommended Home Diet: resume previous diet Procedures Procedures Performed: Total laparoscopic hysterectomy and bilateral salpingo-oophorectomy; cystoscopy DaVinci Pending Studies Studies pending at discharge: no Medical Emergencies . Who to Call and When: Medical Emergencies: If at any time you feel your situation is an emergency, please call 911 immediately. . Non-Emergent Contact Non-Emergency issues call your: Primary Care Provider . . "Provider Documentation" section prepared by Thalia Mcleod. . [place] Drug Monitoring Program Search Results: no issues identified
[2018-02-18] MEDS ORDERED: MEPERIDINE HCL 50 MG/ML CARP IV PRN ×2 (13:45)
[2018-02-18] MEDS ORDERED: KETOROLAC TROMETHAMINE 30 MG/ML VIAL IV. PRN (13:45)
[2018-02-18] MEDS ORDERED: OXYCODONE/ACETAMINOPHEN 5-325 TAB PO PRN ×2 (13:45)
[2018-02-18] MEDS ORDERED: SIMETHICONE 80 MG CHEW PO PRN (13:45)
--- NOTE | 2018-02-18 13:47 | [facility] Operative Report ---
Operative Report Operative Date Feb 18, 2018. Pre-Operative Diagnosis Endometriosis in scar, Menorrhagia Post-Operative Diagnosis Same as preop Procedure(s) Performed Total laparoscopic hysterectomy and bilateral salpingo-oophorectomy; cystoscopy [facility]line Surgeon Dr. Mcleod Tube Lancer Surgeon(s) none Estimated Blood Loss 20 mL Specimens A. Cervix, Uterus, Bilateral Fallopian Tubes, and Ovaries Drains None Anesthesia Type General Complication(s) none Disposition no Recovery Room / PACU Description of Procedure Marci was placed on the table in the dorsal lithotomy position with yellowfin stirrups prepped and draped in standard sterile fashion and a hard timeout was taken prior to proceeding. Optical and she was made to the abdomen and the umbilicus without complication. The abdomen was insufflated and then under direct visualization right and left lower quadrant ports were placed without complication. The patient patient was placed in steep Trendelenburg and visualization of the pelvic organs revealed a relatively normal looking uterus tubes and ovaries with some end. The robot was then docked and instruments were placed and then I seated at the console to begin the surgery. Each side of the pelvis was examined to try and visualize the ureter unfortunately the bowel was deeply adhered over the pelvic sidewalls due to the endometriosis, therefore ureteral visualization was limited. Area and the left ureter was difficult to visualize at all. We therefore started on the right side by creating a window around the IP ligament which was then ligated and divided the round ligament was ligated and divided and the broad ligament was then skeletonized to create a expose the uterine artery brought the round ligament on the left was ligated and divided the bladder flap was created and the uterine artery was skeletonized then ligated and divided circumferential colpotomy was completed and the uterus cervix tubes and ovaries were delivered en bloc through the vagina. Vaginal cuff was closed with V lock suture in the usual running nonlocked manner. At the completion of this the needle was retrieved through robotic port and suction irrigation was used to ensure good hemostasis and all working sites. The robot was then removed attention then turned to closure with removal of the ports followed by closure of the skin with a 4-0 Monocryl and application of Dermabond dressing to all sites. I attest to the content of the Intraoperative Record and any orders documented therein. Any exceptions are noted below.
--- NOTE | 2018-02-18 15:09 | Anesthesiology Progress Note ---
Anesthesia Post Op Note Date & Time Feb 18, 2018 at 15:09 Vital Signs Pain Intensity: 0 Vital Signs Past 12 Hours Date Time Temp Pulse Resp B/P (MAP) Pulse Ox O2 Delivery O2 Flow Rate FiO2 02/18/18 14:30 36.6 67 16 151/66 98 Room Air 02/18/18 14:20 70 16 150/81 100 Room Air 02/18/18 14:10 74 16 166/86 100 Oxymask 10 02/18/18 14:00 90 16 174/89 100 Oxymask 10 02/18/18 13:54 37.0 112 16 99 Oxymask 10 02/18/18 09:31 36.9 66 18 134/78 (96) 97 Room Air Notes Mental Status: alert / awake / arousable, participated in evaluation Pt Amnestic to Procedure: Yes Nausea / Vomiting: adequately controlled Pain: adequately controlled Airway Patency, RR, SpO2: stable & adequate BP & HR: stable & adequate Hydration State: stable & adequate Anesthetic Complications: no major complications apparent
[2018-02-18 15:34] LABS: HEMATOCRIT 38.3 % (37-47); HEMOGLOBIN 12.9 g/dL (12.0-16.0)
[2018-02-18] MEDS ORDERED: IV FLUIDS COMPLETED PRN (15:45)
[2018-02-18] MEDS: IBUPROFEN 600 MG TAB PO PRN (20:37)
[2018-02-18] MEDS: DOCUSATE SODIUM 100 MG CAP PO SCH (21:19)
[2018-02-18] MEDS: ACETAMINOPHEN 325 MG TAB PO PRN (23:56)
[2018-02-19] MEDS: IBUPROFEN 600 MG TAB PO PRN ×2 (03:45→09:43)
[2018-02-19 03:50] VITALS: BP 116/67; PULSE 75; TEMP 36.6; O2SAT 97
[2018-02-19 07:49] VITALS: BP 120/63; PULSE 69; TEMP 37.5; O2SAT 96
[2018-02-19] MEDS: ACETAMINOPHEN 325 MG TAB PO PRN (07:49)
[2018-02-19] MEDS ORDERED: OXYC-57 PO (08:50)
--- NOTE | 2018-02-19 08:50 | Progress Note ---
Progress Note Date of Service Feb 19, 2018. Progress Note I visited with the patient yesterday afternoon. She was ambulating, voiding, tolerating regular diet and her pain was well controlled. However, due to her needing to be at work until 1am, she asked to stay overnight. This morning I visited with her again and she continues to do well. Labs/ vitals reviewed. She is tolerating regular breakfast, ambulating, voiding, and pain is minimal. She feels ready for d/c home, and has appts in office for 2 and 6 wk postop already arranged as well as an annual visit in May also. I will place official discharge now.
--- NOTE | 2018-02-19 08:52 | Discharge Summary ---
"Discharge Summary Date of Service Feb 19, 2018. Discharge Summary Admission Date: Feb 18, 2018 at 10:55 Discharge Date: Feb 18, 2018 Discharge Disposition: Home Principal Diagnosis: Endometriosis Procedures: Robotic TLH/BSO, Cysto Medication Reconciliation New Medications: Oxycodone/Acetaminophen 5MG/325MG (Percocet 5MG/325MG) Tab 1 TABLET PO Q4H PRN for Pain, #15 TAB Continued Medications: Acetaminophen (Tylenol) 500 Mg Tab 1000 MG PO PRN, TAB Apple Cider Vinegar (Apple Cider Vinegar) Unknown Strength Cap 2 CAP PO QAM Ibuprofen Tab (Advil) 200 Mg Tab 800 MG PO PRN, TAB Iodine (Kelp) (Kelp) 150 Mcg Tab 150 MG PO QAM Nystatin/Triamcinolone (Mycogen || ) Cr 1 DOSE TOP BID Omeprazole (Prilosec) 20 Mg Capcr 20 MG PO QAM, CAP Turmeric (Curcuma Longa) (Turmeric) 500 Mg Cap 500 MG PO QAM Venlafaxine Hcl (Venlafaxine Hcl Er) 150 Mg Tab 1 TAB PO QAM for 30 Days, #30 TAB 2 Refills [Triamcinolone Cr] () 1 DOSE TP PRN 0.1% Hospital Course Patient was admitted for TLH/BSO due to endometriosis. She underwent the procedure without complications and had an unremarkable postop course. Due to a lack of caregiver available at home overnight, she elected to stay in hospital until the AM. She did well and was discharged with percocet #15 and a follow up at 2 and 6 weeks in office. Total Time Spent: Less than 30 minutes This includes examination of the patient, discharge planning, medication reconciliation, and communication with other providers. Discharge Instructions Please refer to the electronic Patient Visit Report (Discharge Instructions) for additional information."
[2018-02-19] MEDS: DOCUSATE SODIUM 100 MG CAP PO SCH (09:42)
[2018-02-19 10:22] VITALS: BP 120/63; PULSE 69; TEMP 37.5; O2SAT 96
== END 2018-02-19 10:30 | disposition home or self-care (01) ==
LOC: C.ACU 09:04 → C.MS4N 10:55 → ENRESERV 14:38
PROVIDERS: ADMIT Obstetrics & Gynecology; ATTEND Obstetrics & Gynecology
DX: N80.3 Endometriosis of pelvic peritoneum (principal); N92.0 Excessive and frequent menstruation with regular cycle; N80.0 Endometriosis of uterus; F41.8 Other specified anxiety disorders; E11.9 Type 2 diabetes mellitus without complications; Z82.3 Family history of stroke; Z87.891 Personal history of nicotine dependence; Z79.899 Other long term (current) drug therapy
CPT/HCPCS: 58571; S2900

== ENCOUNTER → 2018-06-29 | Outpatient (CLI) | payer OTHER ==
[~2018-06-29] MED LIST changes: -CEFAZOLIN 2000MG IV PUSH 15 ML IV SCH; -DESO5TAB PO; -LACTATED RINGER'S 1000ML 1,000 ML IV SCH; +OXYC-57 PO
--- NOTE | 2018-06-30 14:57 | MAMMOGRAPHY REPORT ---
UNILATERAL RIGHT DIGITAL DIAGNOSTIC MAMMOGRAM TOMOSYNTHESIS WITH CAD: 06/29/2018 CLINICAL HISTORY: 48-year-old woman presents for follow-up in the right breast, for a 2 mm cluster of punctate calcifications in the superior, posterior breast. Patient has a history of silicone breast implants. TECHNIQUE: Right breast cc and MLO views with and without implant displacement views were obtained. Tomosynthesis was also performed on the implant displaced views. Spot magnification right ML and XCC L views were also obtained. Current study was also evaluated with a Computer Aided Detection (CAD) s tem. COMPARISON: Comparison is made to exams dated: 12/15/2017 mammogram, 12/07/2017 mammogram, 12/03/2016 sarita mogram, 12/02/2015 mammogram, 09/11/2013 mammogram, and 09/12/2014 mammogram - [facility]. BREAST COMPOSITION: The tissue of right breast is heterogeneously dense, which may obscure small mass es. FINDINGS: A subglandular silicone implant is in place. There is a stable metallic biopsy marker clip in the lateral right breast. The spot magnification views redemonstrate a tiny, 2 mm grouping of fa int punctate microcalcifications in the upper outer posterior right breast, that are stable dating ba ck to the spot magnification views obtained on 12/15/2017. These calcifications were also likely pres ent dating back to 2013, therefore likely benign. Another six-month follow-up right diagnostic mammo gram including spot magnification views is recommended to ensure longer stability. Annual left mammo graphy will also be due at that time. No other new suspicious masses, calcifications, asymmetries or architectural distortion identified in the visualized right breast. IMPRESSION: ACR-BI-RADS CATEGORY 3: PROBABLY BENIGN 1. Stable mammographic appearance of the right breast including a 2 mm cluster of punctate microcalc ifications in the upper outer far posterior breast. Another six-month follow-up right diagnostic sarita mogram including spot magnification views is recommended to ensure longer stability. Annual left sarita mography will also be due at that time. These results and recommendations were discussed with the patient at the time of the exam. Some breast cancers are not detected with mammography. A negative mammographic report should not jyoti y biopsy if a clinically suggestive mass is present. Indy Rodriguez M.D. ay/:06/29/2018 15:27:12 Attending Technologist: Geni Evans, RT(R)(M), [facility] Director Customer: Lea Turner RT(R)(M), [facility] letter sent: Follow Up Recommended 3 BI-RADS Code: ACR-BI-RADS Category 3: Probably Benign
== END | disposition home or self-care (01) ==
LOC: C.MAMM 13:05
PROVIDERS: ATTEND Family Medicine
DX: R92.0 Mammographic microcalcification found on diagnostic imaging of breast (principal)